=== PATIENT | female | born 1980 | race Hispanic/Latino ===

== ENCOUNTER 2023-12-12 08:49 | Emergency (ER) | payer OTHER ==
--- NOTE | 2023-12-12 10:29 | ER ---
Nurse's Notes [facility] Name: Ramya Contreras Age: 43 yrs Sex: Female : 1980 Arrival Date: 12/12/2023 Time: 08:49 Bed 4 Private MD: Diagnosis: esophageal foreign body - resolved;Dysphagia Presentation: 12/11 09:00 Chief complaint: Pill got struck in throat this morning, has had difficulty swallowing hb meds and solids for 2-3 weeks. Coronavirus screen: At this time, the client does not indicate any symptoms associated with coronavirus-19. Ebola Screen: No symptoms or risks identified at this time. Initial Sepsis Screen: Does the patient meet any 2 criteria? No. Patient's initial sepsis screen is negative. Does the patient have a suspected source of infection? No. Patient's initial sepsis screen is negative. Risk Assessment: Do you want to hurt yourself or someone else? Patient reports no desire to harm self or others. Onset of symptoms was December 12, 2023. 09:00 Method Of Arrival: Ambulatory hb 09:00 Acuity: SERAFIN 3 hb Triage Assessment: 09:02 General: Appears in no apparent distress. uncomfortable, Behavior is calm, cooperative. hb Pain: Pain currently is 4 out of 10 on a pain scale. Neuro: Level of Consciousness is awake, alert, obeys commands, Oriented to person, place, time, situation. Cardiovascular: Patient's skin is warm and dry. Respiratory: Respiratory effort is even, unlabored, Respiratory pattern is regular, symmetrical. Historical: - Allergies: : No Known Allergies; hb - Home Meds: : None [Active]; hb - PMHx: 09: None; hb - PSHx: 09: Gastric Bypass; section; hb - Immunization history:: Adult Immunizations up to date. - Infectious Disease History:: Denies. - Social history:: Smoking status: Patient denies any tobacco usage or history of. Screenin:09 [facility] ED Fall Risk Assessment (Adult) History of falling in the last 3 months, ko1 including since admission No falls in past 3 months (0 pts) Confusion or Disorientation No (0 pts) Intoxicated or Sedated No (0 pts) Impaired Gait No (0 pts) Mobility Assist Device Used No (0 pt) Altered Elimination No (0 pt) Score/Fall Risk Level 0 - 2 = Low Risk Oriented to surroundings, Maintained a safe environment, Educated pt \T\ family on fall prevention, incl call for assistance when getting out of bed, Assessed \T\ reinforced patient's understanding of fall precautions, Provided non-skid footwear, Hourly rounding (assess needs \T\ fall precautionary measures) done, Used ambulatory aids as needed (educated on \T\ assisted with), Used gait belt as appropriate. Abuse screen: Denies threats or abuse. Denies injuries from another. Nutritional screening: No deficits noted. Tuberculosis screening: No symptoms or risk factors identified. Assessment: 09:09 General: Appears in no apparent distress. Behavior is calm, cooperative, appropriate ko1 for age. Pain: Denies pain. Neuro: No deficits noted. Cardiovascular: No deficits noted. Respiratory: No deficits noted. GI: No deficits noted. : No deficits noted. EENT: Reports pill stuck in throat. Derm: No deficits noted. Musculoskeletal: No deficits noted. Vital Signs: 09:00 BP 112 / 77; Pulse 88; Resp 16; Temp 97.2(TE); Pulse Ox 100% on R/A; Weight 49.9 kg; hb Height 5 ft. 1 in. ; Pain 4/10; 09:09 BP 103 / 71; Pulse 80; Resp 14; Pulse Ox 100% ; ko1 09:51 BP 99 / 68; Pulse 78; Resp 16; Pulse Ox 99% ; ko1 09:00 Body Mass Index 20.78 (49.90 kg, 154.94 cm) hb 09:00 Pain Scale: Adult hb ED Course: 08:51 Patient arrived in ED. mg5 09:01 Rena Rowan PA-C is PHCP. sb4 09:01 Rui Temple MD is Attending Physician. sb4 09:02 Triage completed. hb 09:02 Arm band placed on. hb 09:07 Beatriz Gilliam, RN is Primary Nurse. ko1 09:09 Patient has correct armband on for positive identification. Bed in low position. Call ko1 light in reach. Side rails up X 1. Provided Education on: NA. Pulse ox on. NIBP on. Door closed. Noise minimized. PO fluids given. 09:09 No provider procedures requiring assistance completed. Patient did not have IV access ko1 during this emergency room visit. 10:29 Tiffany Oquendo MD is Referral Physician. sb4 Administered Medications: No medications were administered Medication: 09: VIS not applicable for this client. ko1 Outcome: : Discharge ordered by . sb4 10:35 Discharged to home ambulatory, with family, ss 10:35 Condition: good 10:35 Condition: good 10:35 Discharge instructions given to patient, family, Instructed on discharge instructions, follow up and referral plans. Demonstrated understanding of instructions, follow-up care, 10:36 Patient left the ED. ss Signatures: Ruth Escalante RN RN ss Dixie Keys RN RN Beatriz Gilliam RN RN ko1 Rena Rowan, PA-C PA-C sb4 Debbie Mckay mg5
--- NOTE | 2023-12-12 10:29 | EDPHYS ---
Physician Documentation [facility] Name: Ramya Cnotreras Age: 43 yrs Sex: Female : 1980 Arrival Date: 12/12/2023 Time: 08:49 Bed 4 Private MD: ED Physician Rui Temple HPI: 12/11 09:09 This 43 yrs old Female presents to ER via Ambulatory with complaints of Pill sb4 Stuck In Throat. 09:09 Patient states that she took her amoxicillin tablet this morning and half of it got sb4 stuck correction down her throat. She states that it has moved slowly but now she feels like her throat is sore. She has not tried to eat or drink anything since. Does report mild dysphagia over the past year. Historical: - Allergies: 09:02 No Known Allergies; hb - Home Meds: :02 None [Active]; hb - PMHx: 09:02 None; hb - PSHx: 09:02 Gastric Bypass; section; hb - Immunization history:: Adult Immunizations up to date. - Infectious Disease History:: Denies. - Social history:: Smoking status: Patient denies any tobacco usage or history of. ROS: 09:09 Constitutional: Negative for fever, chills, and weight loss, sb4 09:09 ENT: Positive for foreign body sensation, 09:09 All other systems are negative, Exam: 09:09 Constitutional: This is a well developed, well nourished patient who is awake, alert, sb4 and in no acute distress. Head/Face: Normocephalic, atraumatic. Eyes: Extra-ocular motions intact. Periorbital areas with no swelling, redness, or edema. ENT: Mucous membranes moist. Skin: Warm, dry with normal turgor. Normal color with no rashes, no lesions, and no evidence of cellulitis. MS/ Extremity: Pulses equal, no cyanosis. Neurovascular intact. Full, normal range of motion. Psych: Awake, alert, with orientation to person, place and time. Behavior, mood, and affect are within normal limits. Vital Signs: 09:00 BP 112 / 77; Pulse 88; Resp 16; Temp 97.2(TE); Pulse Ox 100% on R/A; Weight 49.9 kg; hb Height 5 ft. 1 in. ; Pain 4/10; 09:09 BP 103 / 71; Pulse 80; Resp 14; Pulse Ox 100% ; ko1 09:51 BP 99 / 68; Pulse 78; Resp 16; Pulse Ox 99% ; ko1 09:00 Body Mass Index 20.78 (49.90 kg, 154.94 cm) hb 09:00 Pain Scale: Adult hb MDM: 09:01 Patient medically screened. sb4 09:14 Data reviewed: vital signs, nurses notes, and as a result, I will discharge patient. sb4 Test considered but Not performed: X-ray: not indicated, pill will dissolve, no airway compromise. Historians other than the Patient: Spouse/Significant Other: . Counseling: I had a detailed discussion with the patient and/or guardian regarding the historical points, exam findings, and any diagnostic results supporting the discharge/admit diagnosis, the need for outpatient follow up, an ENT specialist, to return to the emergency department if symptoms worsen or persist or if there are any questions or concerns that arise at home. Administered Medications: No medications were administered Disposition: 10:41 Co-signature as Attending Physician, Rui Temple MD I reviewed the patient's care rt provided by the Advanced Practice Provider and agree with the diagnosis and treatment plan. Disposition Summary: 12/12/23 10:29 Discharge Ordered Notes: Location: Home sb4 Problem: new sb4 Symptoms: have improved sb4 Condition: Stable sb4 Diagnosis - esophageal foreign body - resolved sb4 - Dysphagia sb4 Followup: sb4 - With: Tiffany Oquendo MD - When: As needed - Reason: Further diagnostic work-up Discharge Instructions: - Discharge Summary Sheet sb4 - Dysphagia sb4 - Swallowed Foreign Body, Adult, [id number] sb4 Forms: - Thank You Letter sb4 - Patient Portal Instructions sb4 - Leadership Thank You Letter sb4 Signatures: Dixie Keys, RN RN Rena Steiner PA-C PA-C sb4 Rui Temple MD MD rt
[2023-12-12 13:17] VITALS: BP 99/68; TEMP 97.2; O2SAT 99
== END 2023-12-12 10:36 | disposition home or self-care (01) ==
LOC: ER 08:49
DX: R13.10 Dysphagia, unspecified (principal); Z98.84 Bariatric surgery status
CPT/HCPCS: 99283

== ENCOUNTER 2024-11-16 13:39 | Emergency (ER) | payer OTHER ==
[2024-11-16 14:10] LABS: Absolute Eosinophils 0.2 K/uL (0-0.5); Absolute Lymphocytes (CBC) 1.6 K/uL (0.7-4.9); Absolute Monocytes 0.4 K/uL (0.1-1.3); Absolute Neutrophil 3.5 K/uL (1.8-8.0); Basophils % 0.7 % (0-1.3); Eosinophils % 3.1 % (0-4.4); Hematocrit 17.7 % (36.0-45.0); Lymphocytes % 28.2 % (15.3-44.8); MCHC 28.1 g/dL (32.0-36.0); MCV 57.1 fL (80-100); MPV 8.3 fL (7.6-11.3); Monocytes % 7.4 % (3.3-12.3); Neutrophils % 60.6 % (41.7-73.7); Nucleated Red Blood Cells % 0.1 % (0-0); Platelets 379 thou/uL (152-406); RBC Red Blood Cell Count 3.09 M/uL (3.86-4.86); Red Cell Distribution Width 19.5 % (12.1-15.2)
[2024-11-16 14:20] LABS: PT Prothrombin Time 10.7 SECONDS (10-13.0); PTT, Activated Partial Thromb 28.9 SECONDS (27.2-37.4); Protime INR 0.94
--- NOTE | 2024-11-16 14:26 | RAD REPORT ---
Procedure: Chest Single View HISTORY: Anemia. Lethargy COMPARISON: none FINDINGS: The lungs appear clear of acute infiltrate. No significant pleural effusion noted. The heart is normal size. IMPRESSION: No acute abnormality is displayed.
[2024-11-16 14:32] LABS: Albumin 3.6 g/dL (3.4-5.0); Anion Gap 8.8 mEq/L (5.0-15.0); Bilirubin Direct 0.2 mg/dL (0-0.2); Bilirubin Indirect, Calculated 0.5 mg/dL (0.2-0.8); Bilirubin Total 0.7 mg/dL (0.2-1.0); Globulin 3.7 g/dL (2.3-3.5); Magnesium 2.1 mg/dL (1.6-2.4); Potassium 3.8 mEq/L (3.5-5.1); Protein, Total 7.3 g/dL (6.4-8.2); Troponin High Sensitivity 3.9 pg/mL (<58.9)
[2024-11-16] MEDS ORDERED: NA CHLORIDE 0.9% 250 ML ONE ×2 (16:05→19:32)
--- NOTE | 2024-11-16 23:22 | ER ---
Nurse's Notes [facility] Name: Ramya Contreras Age: 44 yrs Sex: Female : 1980 Arrival Date: 11/16/2024 Time: 13:39 Bed 5 Private MD: Diagnosis: Iron deficiency anemia, unspecified Presentation: 11/16 13:44 Chief complaint: Patient states: "I had blood work this morning and my doctor called aa5 and said my blood count was a 5". Pt reports only symptom is feeling tired. 13:44 Coronavirus screen: At this time, the client does not indicate any symptoms associated aa5 with coronavirus-19. Ebola Screen: Patient denies travel to an Ebola-affected area in the 21 days before illness onset. Initial Sepsis Screen: Does the patient meet any 2 criteria? No. Patient's initial sepsis screen is negative. Does the patient have a suspected source of infection? No. Patient's initial sepsis screen is negative. Risk Assessment: Do you want to hurt yourself or someone else? Patient reports no desire to harm self or others. Onset of symptoms was November 16, 2024. 13:44 Acuity: SERAFIN 2 aa5 13:44 Method Of Arrival: Ambulatory aa5 Historical: - Allergies: 13:45 No Known Allergies; aa5 - PMHx: 13:45 None; aa5 - PSHx: 13:44 section; Gastric Bypass; aa5 - Immunization history:: Adult Immunizations unknown. - Infectious Disease History:: Denies. - Social history:: Smoking status: Patient denies any tobacco usage or history of. Screenin:58 [facility] ED Fall Risk Assessment (Adult) History of falling in the last 3 months, ld1 including since admission No falls in past 3 months (0 pts) Confusion or Disorientation No (0 pts) Intoxicated or Sedated No (0 pts) Impaired Gait No (0 pts) Mobility Assist Device Used No (0 pt) Altered Elimination No (0 pt) Score/Fall Risk Level 0 - 2 = Low Risk Oriented to surroundings, Hourly rounding (assess needs \\T\\ fall precautionary measures) done. Abuse screen: Denies injuries from another. Abuse screen: Denies threats or abuse. Nutritional screening: No deficits noted. Tuberculosis screening: No symptoms or risk factors identified. Assessment: 15:58 General: Appears in no apparent distress. comfortable, Behavior is calm, cooperative, ld1 appropriate for age. Pain: Denies pain. Neuro: Level of Consciousness is awake, alert, obeys commands, Oriented to person, place, time, situation, Appropriate for age. Cardiovascular: Capillary refill < 3 seconds Patient's skin is warm and dry. Rhythm is sinus rhythm. Respiratory: Airway is patent Respiratory effort is even, unlabored. GI: Abdomen is flat, non-distended, Patient currently denies bloody stool. : No signs and/or symptoms were reported regarding the genitourinary system. EENT: No signs and/or symptoms were reported regarding the EENT system. Derm: No signs and/or symptoms reported regarding the dermatologic system. Musculoskeletal: No signs and/or symptoms reported regarding the musculoskeletal system. 16:45 Reassessment: Patient appears in no apparent distress at this time. No changes from ld1 previously documented assessment. Patient and/or family updated on plan of care and expected duration. Pain level reassessed. Patient is alert, oriented x 3, equal unlabored respirations, skin warm/dry/pink. Patient denies pain at this time. 17:55 Reassessment: Patient appears in no apparent distress at this time. No changes from ld1 previously documented assessment. Patient and/or family updated on plan of care and expected duration. Pain level reassessed. Patient is alert, oriented x 3, equal unlabored respirations, skin warm/dry/pink. 18:46 Reassessment: 1st PRBC unit completed at this time. ld1 19:33 General: Appears in no apparent distress. comfortable, Behavior is calm, cooperative, ld1 appropriate for age. Pain: Denies pain. Neuro: Level of Consciousness is awake, alert, obeys commands, Oriented to person, place, time, situation, Appropriate for age. Respiratory: Airway is patent Respiratory effort is even, unlabored, Respiratory pattern is regular, symmetrical. GI: No deficits noted. No signs and/or symptoms were reported involving the gastrointestinal system. : No deficits noted. No signs and/or symptoms were reported regarding the genitourinary system. EENT: No deficits noted. No signs and/or symptoms were reported regarding the EENT system. Derm: No deficits noted. No signs and/or symptoms reported regarding the dermatologic system. Musculoskeletal: No deficits noted. No signs and/or symptoms reported regarding the musculoskeletal system. Circulation, motion, and sensation intact. Range of motion: intact in all extremities. 20:06 Reassessment: 2ND UNIT OF PRBC INFUSING AT THIS TIME. dd2 21:46 Reassessment: 2ND UNIT PRBC COMPLETED. PT TOLERATED WELL. ld1 23:47 Reassessment: Patient appears in no apparent distress at this time. Patient and/or jb4 family updated on plan of care and expected duration. Pain level reassessed. Patient is alert, oriented x 3, equal unlabored respirations, skin warm/dry/pink. Patient states feeling better. Vital Signs: 13:44 BP 116 / 66; Pulse 81; Resp 18 S; Temp 97.5(TE); Pulse Ox 100% on R/A; aa5 15:58 BP 94 / 64; Pulse 79; Resp 18; Pulse Ox 100% on R/A; ld1 17:44 BP 105 / 59; Pulse 97; Resp 18; Pulse Ox 100% on R/A; ld1 18:46 BP 101 / 61; Pulse 98; Resp 18; Pulse Ox 100% on R/A; ld1 19:32 BP 103 / 62; Pulse 98; Resp 16; Pulse Ox 100% on R/A; ld1 21:46 BP 97 / 60; Pulse 74; Resp 16; Temp 98.6; Pulse Ox 100% on R/A; ld1 ED Course: 13:41 Patient arrived in ED. mr 13:43 Vic Morales PA is PHCP. cp 13:43 Chapo Larsen MD is Attending Physician. cp 13:44 Arm band placed on. aa5 13:46 Triage completed. aa5 13:55 Initial lab(s) drawn, by wi, sent to lab. T\\T\\S collected, blood band applied to patient. aa5 Inserted saline lock: 20 gauge in right antecubital area, using aseptic technique. Blood collected. Flushed with 10 mL NS. 14:03 XRAY Chest (1 view) In Process Unspecified. EDMS 15:57 Ani Marquez, INEZ is Primary Nurse. ld1 15:58 Patient has correct armband on for positive identification. Placed in gown. Bed in low ld1 position. Call light in reach. Side rails up X2. school lunch monitor on. Pulse ox on. NIBP on. Door closed. Noise minimized. Warm blanket given. 15:58 No provider procedures requiring assistance completed. ld1 20:13 Chapo Larsen MD is Attending Physician. cp 23:21 Isaak Rose MD is Referral Physician. cp 23:47 Provided Education on: discharge instructions.. jb4 23:47 IV discontinued, intact, bleeding controlled, No redness/swelling at site. Pressure jb4 dressing applied. Administered Medications: No medications were administered Medication: 15:58 VIS not applicable for this client. ld1 Outcome: 23:21 Discharge ordered by MD. cp 23:47 Discharged to home ambulatory, jb4 23:47 Condition: stable 23:47 Discharge instructions given to patient, Instructed on discharge instructions, follow up and referral plans. medication usage, Demonstrated understanding of instructions, follow-up care, medications, Prescriptions given X 1, 23:53 Patient left the ED. jb4 Signatures: Dispatcher [employer] EDMS Trung Vani, Reg Reg mr Nisreen Babcock, RN RN aa5 Vic Morales PA PA Low James, RN RN jb4 Ani Marquez, INEZ RN ld1 HOMERO SEPULVEDA, RN RN dd2
--- NOTE | 2024-11-16 23:22 | EDPHYS ---
Physician Documentation [facility] Name: Ramya Contreras Age: 44 yrs Sex: Female : 1980 Arrival Date: 11/16/2024 Time: 13:39 Bed 5 Private MD: ED Physician Chapo Larsen HPI: 11/16 13:55 This 44 yrs old Female presents to ER via Ambulatory with complaints of cp Abnormal Lab Results. 13:55 Patient is a 44-year-old female with no significant past medical history. Who presents cp to the emergency department with complaints of fatigue and being referred by her primary care physician for hemoglobin of 5. Patient reports she has had anemia in the past after having a child that did require blood transfusion. Other than fatigue, she reports she feels well and has no complaints. Historical: - Allergies: 13:45 No Known Allergies; aa5 - PMHx: 13:45 None; aa5 - PSHx: 13:44 section; Gastric Bypass; aa5 - Immunization history:: Adult Immunizations unknown. - Infectious Disease History:: Denies. - Social history:: Smoking status: Patient denies any tobacco usage or history of. ROS: 14:00 Constitutional: Positive for fatigue, Negative for body aches, chills, fever, poor PO cp intake, 14:00 Eyes: Negative for injury, pain, redness, and discharge, cp 14:00 ENT: Negative for drainage from ear(s), ear pain, sore throat, difficulty swallowing, difficulty handling secretions, 14:00 Cardiovascular: Negative for chest pain, edema, palpitations, 14:00 Respiratory: Negative for cough, shortness of breath, wheezing, 14:00 Abdomen/GI: Negative for abdominal pain, vomiting, diarrhea, constipation, black/tarry stool, rectal bleeding, 14:00 Neuro: Negative for altered mental status, dizziness, headache, numbness, syncope, near syncope, weakness, 14:00 : Negative for urinary symptoms, vaginal bleeding, cp 14:00 All other systems are negative, Exam: 14:05 Constitutional: The patient appears in no acute distress, alert, awake, comfortable, cp non-diaphoretic, non-toxic, well developed, well nourished, 14:05 Head/Face: Normocephalic, atraumatic. cp 14:05 Eyes: Periorbital structures: appear normal, Conjunctiva: normal, no exudate, no injection, Sclera: no appreciated abnormality, Lids and lashes: appear normal, bilaterally, 14:05 ENT: External ear(s): are unremarkable, Nose: is normal, Mouth: Lips: moist, Oral mucosa: moist, Posterior pharynx: Airway: no evidence of obstruction, patent, 14:05 Neck: ROM/movement: is normal, is supple, without pain, no range of motions limitations, 14:05 Chest/axilla: Inspection: normal, 14:05 Cardiovascular: Rate: normal, Rhythm: regular, Edema: is not appreciated, JVD: is not appreciated, 14:05 Respiratory: the patient does not display signs of respiratory distress, Respirations: normal, no use of accessory muscles, no retractions, labored breathing, is not present, Breath sounds: are clear throughout, no decreased breath sounds, no stridor, no wheezing, 14:05 Abdomen/GI: Inspection: abdomen appears normal, Palpation: abdomen is soft and non-tender, in all quadrants, 14:05 Back: pain, is absent, ROM is normal, 14:05 Neuro: Orientation: to person, place \T\ time. Mentation: is normal, Motor: moves all fours, strength is normal, Sensation: is normal, Gait: is steady, 15:50 : Rectal exam: Rectal tone: normal, Stool: brown, hemorrhoid(s), are not appreciated, cp 15:58 ECG was reviewed by the Attending Physician. cp Vital Signs: 13:44 BP 116 / 66; Pulse 81; Resp 18 S; Temp 97.5(TE); Pulse Ox 100% on R/A; aa5 15:58 BP 94 / 64; Pulse 79; Resp 18; Pulse Ox 100% on R/A; ld1 17:44 BP 105 / 59; Pulse 97; Resp 18; Pulse Ox 100% on R/A; ld1 18:46 BP 101 / 61; Pulse 98; Resp 18; Pulse Ox 100% on R/A; ld1 19:32 BP 103 / 62; Pulse 98; Resp 16; Pulse Ox 100% on R/A; ld1 21:46 BP 97 / 60; Pulse 74; Resp 16; Temp 98.6; Pulse Ox 100% on R/A; ld1 MDM: 13:43 Medical Screening Exam initiated cp 15:00 Differential Diagnosis chronic anemia, GI bleed, iron deficiency, autoimmune disorder. 23:20 Data reviewed: vital signs, nurses notes, lab test result(s), EKG, I have discussed the cp patient's presentation/case with the attending Emergency Department Physician; and as a result, I will discharge patient. 23:20 Consideration of Admission/Observation Escalation of care including cp admission/observation considered. I considered the following discharge prescriptions or medication management in the emergency department Medications were administered in the Emergency Department. See MAR. Independent interpretation of the following test(s) in the Emergency Department EKG: See my EKG interpretation above. Counseling: I had a detailed discussion with the patient and/or guardian regarding the historical points, exam findings, and any diagnostic results supporting the discharge/admit diagnosis, lab results, the need for outpatient follow up, a family practitioner, a inspector conveyor line, to return to the emergency department if symptoms worsen or persist or if there are any questions or concerns that arise at home. Response to treatment: the patient's symptoms have mildly improved after treatment, and as a result, I will discharge patient. 11/16 13:52 Order name: Basic Metabolic Panel; Complete Time: 15: 11/16 15: Interpretation: Normal except: CL 113; CRE 0.54; CA 8.4. 11/16 13:52 Order name: CBC with Diff; Complete Time: 15: 11/16 15: Interpretation: Normal except: RBC 3.09; HGB 5.0; HCT 17.7; MCV 57.1; MCH 16.0; MCHC cp 28.1; RDW 19.5. 11/16 13:52 Order name: LFT's; Complete Time: 15: 11/16 15: Interpretation: Normal except: GLOB 3.7; A/G 1.0. 11/16 13:52 Order name: Magnesium; Complete Time: 15: 11/16 13:52 Order name: NT PRO-BNP; Complete Time: 15:07 cp 11/16 15: Interpretation: Abnormal: NT PRO-BNP 166. 11/16 13:52 Order name: PT-INR; Complete Time: 15:07 11/16 15:09 Interpretation: Reviewed. 03/20 13:52 Order name: Troponin HS; Complete Time: 15:07 cp 11/16 15:08 Interpretation: Reviewed. cp 11/16 13:52 Order name: Ptt, Activated; Complete Time: 15:07 cp 11/16 15:09 Interpretation: Reviewed. cp 11/16 13:52 Order name: Type And Screen cp 11/16 13:52 Order name: TIBC; Complete Time: 15:07 cp 11/16 15:08 Interpretation: Abnormal: Reviewed. cp 11/16 13:52 Order name: Iron Level; Complete Time: 15:07 cp 11/16 15:08 Interpretation: Abnormal: Reviewed. cp 11/16 15:16 Order name: Packed RBCs (Additional Unit) EDMS 11/16 13:52 Order name: XRAY Chest (1 view); Complete Time: 15:07 cp 11/16 13:52 Order name: Cardiac monitoring; Complete Time: 15:57 cp 11/16 13:52 Order name: EKG - Nurse/Tech; Complete Time: 15:57 cp 11/16 13:52 Order name: IV Saline Lock; Complete Time: 14:02 cp 11/16 13:52 Order name: Labs collected and sent; Complete Time: 14:02 cp 11/16 13:52 Order name: O2 Per Protocol; Complete Time: 15:39 cp 11/16 13:52 Order name: O2 Sat Monitoring; Complete Time: 15:39 cp 11/16 15:30 Order name: Transfuse; Complete Time: 17:44 cp EC:58 Rate is 79 beats/min. Rhythm is regular. DE interval is normal. QRS interval is normal. cp QT interval is normal. T waves are Inverted in leads aVL, aVR. Interpreted by me. Reviewed by me. Administered Medications: No medications were administered Disposition Summary: 11/16/24 23:21 Discharge Ordered Notes: Location: Home cp Problem: new cp Symptoms: have improved cp Condition: Stable cp Diagnosis - Iron deficiency anemia, unspecified cp Followup: cp - With: Private Physician - When: 2 - 3 days - Reason: Recheck today's complaints Followup: cp - With: Isaak Rose MD - When: 2 - 3 days - Reason: anemia Discharge Instructions: - Discharge Summary Sheet cp - Iron Deficiency Anemia, Adult cp - Anemia cp - Blood Transfusion, Adult cp - Iron-Rich Diet cp Forms: - Medication Reconciliation Form cp - Antibiotic Education cp - Prescription Opioid Use cp - Patient Portal Instructions cp - Leadership Thank You Letter cp Prescriptions: - Ferrous Sulfate 325 mg (65 mg Iron) Oral tablet - take 1 tablet ORAL route every 12 hours; 60 tablet; Refills: 0, Product cp Selection Permitted Critical care time excluding procedures: 11/17 15:35 Critical care time: Bedside Care: 7 minutes, Consultation: 20 minutes, Family cp Intervention: 5 minutes. Total time: 32 minutes Signatures: Dispatcher [employer] Nisreen Matthews RN RN aa5 Vic Morales PA PA cp Corrections: (The following items were deleted from the chart) 11/16 13:53 13:52 BASIC METABOLIC PANEL+C.LAB.BRZ ordered. EDMS EDMS 13:53 13:52 CBC+H.LAB.BRZ ordered. EDMS EDMS 13:53 13:52 HEPATIC FUNCTION+C.LAB.BRZ ordered. EDMS EDMS 13:53 13:52 MAGNESIUM+C.LAB.BRZ ordered. EDMS EDMS 13:53 13:52 PROBNP+C.LAB.BRZ ordered. EDMS EDMS 13:53 13:52 PROTIME (+INR)+COAG.LAB.BRZ ordered. EDMS EDMS 13:53 13:52 Troponin High Sensitivity+C.LAB.BRZ ordered. EDMS EDMS 13:53 13:52 PTT, ACTIVATED+COAG.LAB.BRZ ordered. EDMS EDMS 13:53 13:52 TYPE AND SCREEN+BB.LAB.BRZ ordered. EDMS EDMS 13:53 13:52 Urinalysis+U.LAB.BRZ ordered. EDMS EDMS 13:53 13:52 Test, Urine+UC.LAB.BRZ ordered. EDMS EDMS 13:53 13:52 TRANSFERRIN SAT/IRON BINDING+C.LAB.BRZ ordered. EDMS EDMS 13:53 13:52 FERRITIN+C.LAB.BRZ ordered. EDMS EDMS 13:53 13:53 Chest Single View+RAD.RAD.BRZ ordered. EDMS EDMS 11/17 15:33 11/16 14:00 All other systems are negative, cp cp
[2024-11-17 00:12] VITALS: O2SAT 100
[2024-11-17 00:27] VITALS: BP 97/60; TEMP 98.6
--- NOTE | 2024-11-20 12:13 | EKG ---
Test Date: 2024-11-16 Test Time: 15:53:41 [employer] Web Developer: MATT MEASUREMENT RESULTS: Intervals: Rate: 79 WI: 142 QRSD: 66 QT: 376 QTc: 431 [place]: P: 66 WI: 142 QRS: 70 T: 65 INTERPRETIVE STATEMENTS: Normal sinus rhythm with sinus arrhythmia Normal ECG No previous ECG available for comparison Electronically Signed On 11-20-24 12:03:55 CDT by Jd Benjamin
== END 2024-11-16 23:53 | disposition home or self-care (01) ==
LOC: ER 13:39
PROC: 30233N1 Transfusion of Nonautologous Red Blood Cells into Peripheral Vein, Percutaneous Approach (ICD-10-PCS; principal; 2024-11-16)
DX: D50.9 Iron deficiency anemia, unspecified (principal)
CPT/HCPCS: 85025; 80048; 36415; 86900; 83735; 86850; 85610; 86901; 80076; 85730; 86920 ×2; 84484; 82728; 83540; 86922 ×2; 83880; 84466; 71045; 99284; 36430; P9016 ×2; J7050 ×2; 93005